=== PATIENT | male | born 1995 | race Caucasian/White ===

== ENCOUNTER 2020-05-18 05:59 | Emergency (ER) | payer BC ==
[~2020-05-18] VITALS: Ht 172.7 cm; Wt 90.7 kg
[2020-05-18] MEDS ORDERED: SINGULAIR4 M1 PO (06:14)
[2020-05-18] MEDS ORDERED: CYCLOBENZAPRINE10 MG PO (07:12)
[2020-05-18] MEDS ORDERED: ZOFRAN4 MG PO (07:12)
== END 2020-05-18 07:16 | disposition home or self-care (01) ==
LOC: ED 05:59
DX: M54.5 Low back pain (principal); Z88.0 Allergy status to penicillin
CPT/HCPCS: 80053; 81001; 83690; 85025; 96374; 99283-25; J2405

== ENCOUNTER 2022-01-11 11:04 | Emergency (ER) | payer OTHER, BC ==
[~2022-01-11] VITALS: Ht 172.7 cm; Wt 77.8 kg
[~2022-01-11 11:04] MED LIST: CYCLOBENZAPRINE10 MG PO; SINGULAIR4 M1 PO; ZOFRAN4 MG PO
[2022-01-11] MEDS ORDERED: ESCITALOPRAM OX10 MG PO (11:21)
[2022-01-11] MEDS ORDERED: HYDROXYZINE HCL50 MG PO (11:21)
[2022-01-11] MEDS ORDERED: ZYRTEC-D TABLE1 EACH PO (11:22)
[2022-01-11] MEDS ORDERED: HYDROCODON-ACE1 EA11 PO (12:10)
== END 2022-01-11 12:54 | disposition home or self-care (01) ==
LOC: ED 11:04
DX: S62.316A Displaced fracture of base of fifth metacarpal bone, right hand, initial encounter for closed fracture (principal); Z88.0 Allergy status to penicillin; Z79.899 Other long term (current) drug therapy; W22.8XXA Striking against or struck by other objects, initial encounter
CPT/HCPCS: 29125; 73130; 99283-25; A9270